=== PATIENT | female | born 1980 | race Caucasian/White ===

== ENCOUNTER 2023-03-12 11:42 | Emergency (ER) | payer MEDICAID, SELFPAY ==
[2023-03-12 11:42] VITALS: BP 141/90; PULSE 74; RESP 18; TEMP 36.1; O2SAT 96
[2023-03-12 11:54] VITALS: BP 141/90; PULSE 74; RESP 18; TEMP 36.1; O2SAT 96
--- NOTE | 2023-03-12 12:14 | ED.DENTAL ---
HPI - Dental/Oral General Chief complaint: Dental/Oral Stated complaint: dental pain and abscess Time Seen by Provider: 03/12/23 11:50 Source: patient and family Mode of arrival: ambulatory Limitations: no limitations History of Present Illness HPI Narrative: patient is a 42-year-old female with dental complaints of the right lower mandible. MD Complaint: tooth pain Onset (ago): day(s) Duration: constant Severity: moderate Severity scale (1-10): 6 Relieving factors: nothing Exacerbating factors: chewing, cold, heat and drinking fluids Context: history of dental caries and poor dental care Associated symptoms: gum swelling Treatment prior to arrival: oral analgesic Related Data Allergies Allergy/AdvReac Type Severity Reaction Status Date / Time No Known Allergies Allergy Verified 03/12/23 11:54 Review of Systems Review of Systems: All systems reviewed & are unremarkable except as noted in HPI and below Constitutional: Constitutional: Reports no additional constitutional complaints Eyes: Eyes: Reports no additional eye complaints ENT: Reports system reviewed and no additional complaints, except as documented Cardiovascular: Cardiovascular: Reports no additional cardiovascular complaints Respiratory: Respiratory: Reports no additional respiratory complaints Gastrointestinal: Gastrointestinal: Reports no additional gastrointestinal complaints Genitourinary: Genitourinary: Reports no additional female genitourinary complaints Musculoskeletal: Musculoskeletal: Reports no additional musculoskeletal complaints Integumentary/Breasts: Skin/Breast: Reports system reviewed and no additional complaints, except as docu Neurologic: Reports system reviewed and no additional complaints, except as documented Psychiatric: Psychiatric: Reports no additional psychiatric complaints Endocrine: Endocrine: Reports no additional endocrine complaints Hematologic/Lymphatic: Hematologic/Lymphatic: Reports no additional hematologic/lymphatic complaints Allergic/Immunologic: Allergic/Immunologic: Reports no additional allergic/immunologic complaints Exam Const: General: healthy appearing and no acute distress Nutritional Appearance: well nourished Orientation/consciousness: patient oriented x3 HENMT: Head: normal to inspection Ears: external ears normal Face/Nose/Sinus: Normal external nose present Teeth and gingiva: abnormal tooth and associated gingiva ( Generalized poor dentition with dental caries and dental fractures) Other: no dental abscesses Eyes: Conjunctivae: conjunctivae normal Pupils: Equal, round and reactive pupils present EOM: EOMs intact bilaterally Resp: Effort & Inspection: normal respiratory effort Auscultation: clear to auscultation bilaterally Cardio: Rate: regular rate Rhythm: regular rhythm Heart sounds: no murmurs GI: Inspection: non-distended Auscultation: normal bowel sounds Skin: General skin exam: normal color Rashes: no rashes Wounds: no wounds Neuro: General: patient oriented x3, moves all extremities and no meningeal signs Extrem: General: normal to inspection, no clubbing, cyanosis or edema and no pedal edema Psych: Mental Status: mental status grossly normal Affect: normal affect Attitude: cooperative Course Vital Signs Vital signs: Vital Signs Temperature 36.1 C L 03/12/23 11:42 Pulse Rate 74 03/12/23 11:42 Respiratory Rate 18 03/12/23 11:42 Blood Pressure 141/90 H 03/12/23 11:42 Pulse Oximetry 96 03/12/23 11:42 Oxygen Delivery Room Air 03/12/23 11:42 Temperature 36.1 C L 03/12/23 11:54 Pulse Rate 74 03/12/23 11:54 Respiratory Rate 18 03/12/23 11:54 Blood Pressure 141/90 H 03/12/23 11:54 Pulse Oximetry 96 03/12/23 11:54 Oxygen Delivery Room Air 03/12/23 11:54 Discharge Plan Discharge Clinical Impression: Mandible pain Patient Disposition: Home, Self-Care Condition: Stable Instructions: Antibiotic Form
[2023-03-12] MEDS: KETOROLAC (*BKC) 60 MG/2 ML VIAL IM (12:21)
[2023-03-12 12:24] VITALS: BP 140/87; PULSE 84; RESP 20; O2SAT 97
== END 2023-03-12 12:32 | disposition home or self-care (01) ==
LOC: CHSED 12:28
PROVIDERS: Emergency Provider Emergency Medicine
DX: R68.84 Jaw pain (principal)
CPT/HCPCS: 96372; 99283; J1885

== ENCOUNTER 2023-05-12 08:05 | Emergency (ER) | payer OTHER, SELFPAY ==
[2023-05-12 08:05] VITALS: BP 129/74; PULSE 71; RESP 16; TEMP 36.7; O2SAT 96
--- NOTE | 2023-05-12 08:20 | ED.DENTAL ---
HPI - Dental/Oral General Chief complaint: Dental/Oral Stated complaint: dental pain Time Seen by Provider: 05/12/23 08:20 Source: patient Mode of arrival: ambulatory Limitations: no limitations History of Present Illness HPI Narrative: 42-year-old female with depression, dental caries presents to the ER with -- right lower jaw pain/dental pain. She has multiple fractured teeth with extensive caries. No fever or chills. No jaw swelling. MD Complaint: tooth pain Onset (ago): day(s) Duration: constant Severity: moderate Relieving factors: nothing Exacerbating factors: cold and heat Context: history of dental caries Treatment prior to arrival: none Related Data Allergies Allergy/AdvReac Type Severity Reaction Status Date / Time No Known Allergies Allergy Verified 03/12/23 11:54 Review of Systems Review of Systems: All systems reviewed & are unremarkable except as noted in HPI and below Constitutional: Constitutional: Reports as per HPI and Reports no additional constitutional complaints Eyes: Eyes: Reports as per HPI and Reports no additional eye complaints ENT: Reports system reviewed and no additional complaints, except as documented and Reports as per HPI Cardiovascular: Cardiovascular: Reports as per HPI and Reports no additional cardiovascular complaints Respiratory: Respiratory: Reports as per HPI and Reports no additional respiratory complaints Gastrointestinal: Gastrointestinal: Reports as per HPI and Reports no additional gastrointestinal complaints Genitourinary: Genitourinary: Reports no additional female genitourinary complaints and Reports as per HPI Musculoskeletal: Musculoskeletal: Reports no additional musculoskeletal complaints and Reports as per HPI Integumentary/Breasts: Skin/Breast: Reports system reviewed and no additional complaints, except as docu and Reports as per HPI Neurologic: Reports system reviewed and no additional complaints, except as documented and Reports as per HPI Psychiatric: Psychiatric: Reports no additional psychiatric complaints and Reports as per HPI Endocrine: Endocrine: Reports no additional endocrine complaints and Reports as per HPI Hematologic/Lymphatic: Hematologic/Lymphatic: Reports no additional hematologic/lymphatic complaints and Reports as per HPI Allergic/Immunologic: Allergic/Immunologic: Reports no additional allergic/immunologic complaints and Reports as per HPI PMFSH Past Medical History Medical History Dental caries Exam Const: General: no acute distress Nutritional Appearance: well nourished Orientation/consciousness: patient oriented x3 Limitations: no limitations HENMT: Head: normal to inspection Ears: external ears normal Face/Nose/Sinus: Normal external nose present Face and sinus: normal facial exam Mouth: Yes Normal oral and palatal mucosa present Teeth and gingiva: abnormal tooth and associated gingiva ( extensive dental caries with multiple missing crowns) Throat: posterior oropharynx normal Eyes: Conjunctivae: conjunctivae normal Pupils: Equal, round and reactive pupils present EOM: EOMs intact bilaterally Direct Ophthalmoscopy: no photophobia Neck: Neck: normal visual inspection, no lymphadenopathy and no meningeal signs Chest: Chest palpation & inspection: normal inspection of the chest Resp: Effort & Inspection: normal respiratory effort Auscultation: clear to auscultation bilaterally Cardio: Rate: regular rate Rhythm: regular rhythm GI: GI Palp: Yes Soft to palpation Auscultation: normal bowel sounds Rectal Exam: normal sphincter tone : General: Yes no CVA tenderness Back/Spine/Pelvis: Back: no CVA tenderness Skin: General skin exam: normal color Rashes: no rashes Wounds: no wounds Neuro: General: patient oriented x3, moves all extremities, no meningeal signs, no focal motor deficits and CN's II-XI intact bilaterally Cranial nerves: Yes Nystagmus
[2023-05-12] MEDS: HYDROcodone/acetaminophen (*CRX) 5-325 MG TABLET 1 TAB PO (08:36)
== END 2023-05-12 08:50 | disposition home or self-care (01) ==
LOC: CHSED 08:36
PROVIDERS: Emergency Provider Internal Medicine Critical Care Medicine; PCP Physician Assistant
DX: K02.9 Dental caries, unspecified (principal)
CPT/HCPCS: 99283; A9270

== ENCOUNTER 2023-09-17 03:22 | Emergency (ER) | payer OTHER, SELFPAY ==
[2023-09-17 03:22] VITALS: BP 137/78; PULSE 68; RESP 18; TEMP 36.6; O2SAT 100
--- NOTE | 2023-09-17 03:31 | ED_ITS ---
HPI - Dental/Oral General Chief complaint: Dental/Oral Stated complaint: dental pain Time Seen by Provider: 09/17/23 03:27 Source: patient Mode of arrival: ambulatory Limitations: no limitations History of Present Illness HPI Narrative: this is a 43-year-old female that presents with dental pain with a cracked too th and severe dental decay with surrounding gum inflammation there is no fever chills no shortness of breath no nausea vomiting. MD Complaint: tooth pain and tooth injury Teeth map: 1. severe tooth decay and cracked tooth with surrounding gum inflammation Onset (ago): month(s) Duration: constant Severity: moderate Severity scale (1-10): 6 Related Data Home Medications Medication Instructions Recorded Confirmed sertraline 100 mg tablet 200 mg PO DAILY 09/17/23 09/17/23 Allergies Allergy/AdvReac Type Severity Reaction Status Date / Time No Known Allergies Allergy Verified 09/17/23 03:28 Review of Systems Review of Systems: All systems reviewed & are unremarkable except as noted in HPI and below PMFSH Past Medical History Medical History Dental caries Exam Const: General: no acute distress Nutritional Appearance: well nourished Orientation/consciousness: patient oriented x3 Limitations: no limitations HENMT: Head: normal to inspection Other: Severe tooth decay and surrounding gum inflammation Neck: Neck: normal visual inspection and no lymphadenopathy Chest: Chest palpation & inspection: normal inspection of the chest Resp: Effort & Inspection: normal respiratory effort Auscultation: clear to auscultation bilaterally Cardio: Rate: regular rate Rhythm: regular rhythm GI: GI Palp: Yes Soft to palpation Skin: General skin exam: normal color Course Course Emergency Course: patient received a dose of Toradol 10mg p.o. and amoxicillin 500mg. Critical Care Time Critical Care Time Critical Care Time: No Discharge Plan Discharge Clinical Impression: Dental caries, Toothache, Dental abscess, Fracture of tooth Patient Disposition: Home, Self-Care Condition: Stable Instructions: Antibiotic Form, Dental Abscess (ED), Toothache (ED) Additional Instructions: Take medication as prescribed and follow with dentist for further evaluation treatment. Prescriptions: New amoxicillin 500 mg tablet 500 mg PO TID Qty: 30 0RF tramadol 50 mg tablet 50 mg PO Q6H PRN (Reason: pain) Qty: 14 0RF No Action sertraline 100 mg tablet 200 mg PO DAILY Follow-up/Referrals: Rachna,BART Deluna [Primary Care Provider] - Stand Alone Forms: Work/School Release IP Time of Disposition: 03:37
[2023-09-17] MEDS: AMOXICILLIN 500 MG CAPSULE PO (03:38)
[2023-09-17] MEDS: KETOROLAC 10 MG TABLET PO (03:39)
== END 2023-09-17 03:45 | disposition home or self-care (01) ==
LOC: CHSED 03:41
PROVIDERS: Emergency Provider Emergency Medicine; PCP Physician Assistant
DX: K02.9 Dental caries, unspecified (principal); K04.7 Periapical abscess without sinus; S02.5XXA Fracture of tooth (traumatic), initial encounter for closed fracture; Z79.899 Other long term (current) drug therapy; X58.XXXA Exposure to other specified factors, initial encounter
CPT/HCPCS: 99283; A9270

== ENCOUNTER 2023-11-28 21:39 | Emergency (ER) | payer OTHER, SELFPAY ==
--- NOTE | ~2023-11-28 | CT_ITS ---
Clinical Indication: Chest pain CT Scan of the Chest with Contrast: Technique: Contiguous sections were acquired throughout the chest after intravenous administration of 100 cc of Omnipaque 350. Dose reduction technique was used on this scan by utilizing automated expos ure control and iterative reconstruction technique. The dose-length product (DLP) was 351.60 mGy-cm. Findings: There is no evidence of any significant mediastinal, hilar or axillary lymphadenopathy. There is no f illing defect in the pulmonary arterial tree to suggest pulmonary embolus. There is no evidence of ao rtic dissection or aneurysm. There is no evidence of pleural or pericardial effusion. The lungs are clear. No pulmonary nodules or infiltrates are noted. Images through the upper abdomen reveal no abnormalities. Impression: No evidence of pulmonary embolus, aortic dissection, or aortic aneurysm. Clear lungs. Reviewed, dictated and finalized at [facility]. Impression: No evidence of pulmonary embolus, aortic dissection, or aortic aneurysm. Clear lungs.
--- NOTE | ~2023-11-28 | XR_ITS ---
Clinical Indication: Chest pain PA and lateral views of the chest: Comparison: None Findings: The lungs are clear, without evidence of focal consolidation or pleural effusion. Cardiome diastinal silhouette is within normal limits. Bones and soft tissues are unremarkable. Impression: Normal chest. Reviewed, dictated and finalized at location . Impression: Normal chest.
[2023-11-28 21:42] VITALS: BP 157/87; PULSE 72; RESP 18; TEMP 36.6; O2SAT 97
--- NOTE | 2023-11-28 21:54 | ECG_ITS ---
SEE SCANNED COPY FOR CONFIRMED REPORT MTDD
--- NOTE | 2023-11-28 22:07 | ED.GENADULT ---
HPI - General Adult General Chief complaint: Unspecified Stated complaint: abdominal pain Time Seen by Provider: 11/28/23 21:45 Source: patient Mode of arrival: ambulatory Limitations: no limitations History of Present Illness [facility] narrative: patient is a 43-year-old female with a significant past medical history that presents today with left-sided chest pain. Patient has had this for the last week now. She states that is worse than last few days. He says the pain feels like a stabbing pain in her left side of her chest. She has a new little bit shortness of breath sometimes when she does look bad pain. She denies any injury to the area. She does not remember bumping into things are bad. MD complaint: Chest pain, rib pain Onset (ago): day(s) Location: chest Radiation: flank Severity: moderate Severity scale (1-10): 4 Quality: stabbing and aching Pain Consistency: intermittent Relieving factors: none Exacerbating factors: none Associated symptoms: chest pain Treatments prior to arrival: none Related Data Home Medications Medication Instructions Recorded Confirmed sertraline 100 mg tablet 200 mg PO DAILY 09/17/23 11/28/23 bupropion HCl 150 mg 24 hr tablet, 150 mg PO DAILY 11/28/23 11/28/23 extended release Allergies Allergy/AdvReac Type Severity Reaction Status Date / Time No Known Allergies Allergy Verified 11/28/23 22:13 Review of Systems Review of Systems: All systems reviewed & are unremarkable except as noted in HPI and below Constitutional: Constitutional: Reports as per HPI Eyes: Eyes: Reports no additional eye complaints ENT: Reports system reviewed and no additional complaints, except as documented Cardiovascular: Cardiovascular: Reports chest pain Respiratory: Respiratory: Reports no additional respiratory complaints Gastrointestinal: Gastrointestinal: Reports no additional gastrointestinal complaints Genitourinary: Genitourinary: Reports no additional female genitourinary complaints Musculoskeletal: Musculoskeletal: Reports as per HPI Integumentary/Breasts: Skin/Breast: Reports system reviewed and no additional complaints, except as docu Neurologic: Reports system reviewed and no additional complaints, except as documented Psychiatric: Psychiatric: Reports no additional psychiatric complaints Endocrine: Endocrine: Reports no additional endocrine complaints Hematologic/Lymphatic: Hematologic/Lymphatic: Reports no additional hematologic/lymphatic complaints Allergic/Immunologic: Allergic/Immunologic: Reports no additional allergic/immunologic complaints [facility] Past Medical History Medical History Dental caries Exam Const: General: cooperative, healthy appearing and comfortable Nutritional Appearance: average body habitus Orientation/consciousness: oriented to person Limitations: no limitations HENMT: Head: normal to inspection Ears: hearing grossly normal bilaterally Face/Nose/Sinus: Normal external nose present Eyes: General: appearance normal, both eyes and all related structures Neck: Neck: normal visual inspection Chest: Chest palpation & inspection: localized rib tenderness with anteroposterior compression Resp: Effort & Inspection: normal respiratory effort and able to speak in complete sentences Auscultation: clear to auscultation bilaterally Cardio: Jugular venous distension: no JVD Palpation: normal PMI Rate: regular rate Rhythm: regular rhythm Heart sounds: S1 normal heart sound present and S2 normal heart sound present GI: Inspection: normal to inspection Back/Spine/Pelvis: Back: no CVA tenderness Skin: General skin exam: normal color and no rashes or lesions noted Lesions: no lesions Rashes: no rashes Trauma: no lacerations or abrasions Neuro: General: oriented to person and oriented to place Cranial nerves: Yes CN's II-XII intact bilaterally Cognition (Neuro): normal cognition Speech:
[2023-11-28] MEDS: KETOROLAC (*BKC) 60 MG/2 ML VIAL IM (22:20)
[2023-11-28 22:58] LABS: Basophils Absolute Auto 0.03 K/mm3 (0.00-0.10); Basophils Percent Auto 0.3 % (0.0-1.0); Eosinophils Absolute Auto 0.19 K/mm3 (0.02-0.50); Eosinophils Percent Auto 2.2 % (1.0-6.0); Hematocrit 41.5 % (35.0-49.0); Immature Granulocyte Absolute 0.02 K/mm3 (0.00-0.00); Immature Granulocyte Percent A 0.2 % (0.0-0.0); Lymphocytes Absolute Auto 2.27 K/mm3 (1.10-4.50); Lymphocytes Percent Auto 25.9 % (18.0-42.0); Mean Corpuscular HGB Conc 33.7 g/dL (32-36); Mean Corpuscular Hemoglobin 31.7 pg (27.0-31.0); Mean Corpuscular Volume 94.1 fL (78.0-102.0); Mean Platelet Volume 12.7 fl (9.2-11.8); Monocytes Percent Auto 4.6 % (2.0-11.0); Neutrophils Absolute Auto 5.86 K/mm3 (1.70-7.20); Neutrophils Percent Auto 66.8 % (50.0-70.0); Platelet Count Result 154 K/mm3 (150-420); Red Blood Count 4.41 M/mm3 (4.20-5.40); Red Cell Distribution Width 12.8 % (11.6-14.4); White Blood Count 8.8 K/mm3 (4.8-10.8)
[2023-11-28 23:13] LABS: Alanine Aminotransferase 23 U/L (14-59); Alkaline Phosphatase 97 U/L (46-116); Anion Gap 11 mmol/L (4-12); Aspartate Amino Transferase 13 U/L (15-37); Bilirubin,Total 0.4 mg/dL (0.00-1.00); Blood Urea Nitrogen 14 mg/dL (7-18); Calcium 8.5 mg/dL (8.5-10.1); Carbon Dioxide 26 mmol/L (21-32); Chloride 103 mmol/L (98-108); Estimated CRCL calculation 79 ml/min; Estimated Glomerular Filt Rate > 60; Glucose 102 mg/dL (70-99); Osmolality Calculated 290 mOsm/kg (285-295); Potassium 3.6 mmol/L (3.5-5.1); Sodium 140 mmol/L (136-145); Total Protein 6.4 g/dL (6.4-8.2)
[2023-11-29 00:55] VITALS: BP 136/75; PULSE 87; RESP 20; TEMP 37.2; O2SAT 98
== END 2023-11-29 00:56 | disposition home or self-care (01) ==
PROVIDERS: Emergency Provider Family Medicine; PCP Physician Assistant
DX: M94.0 Chondrocostal junction syndrome [Tietze] (principal); R07.81 Pleurodynia
CPT/HCPCS: 36415; 71046; 71275; 80053; 85025; 85380; 93005; 96372; 99284; J1885; Q9967

== ENCOUNTER 2024-03-17 15:51 | Emergency (ER) | payer OTHER, SELFPAY ==
[2024-03-17 15:51] VITALS: BP 136/71; PULSE 62; RESP 18; TEMP 36.4; O2SAT 96
--- NOTE | 2024-03-17 16:15 | PC.NURSE ---
covid test sent to lab
--- NOTE | 2024-03-17 16:24 | ED.URI ---
HPI - URI/Sore Throat General Chief Complaint: Upper Respiratory Infection Stated Complaint: sore throat Source: patient Mode of arrival: ambulatory Limitations: no limitations History of Present Illness HPI Narrative: Patient is a 43-year-old female with sore throat and cough and congestion. MD elicited complaint: cough, sore throat and nasal congestion Onset (ago): day(s) (2) Consistency: constant Severity: mild Pain scale (0-10): 2 Description of mucous: clear and watery Able to tolerate fluids by mouth: Yes Exacerbating factors: nothing Relieving factors: nothing Context: sick contacts ( There is another member in the house with COVID) Associated symptoms: myalgias, nasal congestion and sore throat Treatments prior to arrival: none Related Data Home Medications Medication Instructions Recorded Confirmed sertraline 100 mg tablet 200 mg PO DAILY 09/17/23 03/17/24 Allergies Allergy/AdvReac Type Severity Reaction Status Date / Time No Known Allergies Allergy Verified 03/17/24 15:59 Review of Systems Review of Systems: All systems reviewed & are unremarkable except as noted in HPI and below Constitutional: Constitutional: Reports no additional constitutional complaints Eyes: Eyes: Reports no additional eye complaints ENT: Reports system reviewed and no additional complaints, except as documented Cardiovascular: Cardiovascular: Reports no additional cardiovascular complaints Respiratory: Respiratory: Reports no additional respiratory complaints Gastrointestinal: Gastrointestinal: Reports no additional gastrointestinal complaints Genitourinary: Genitourinary: Reports no additional female genitourinary complaints Musculoskeletal: Musculoskeletal: Reports no additional musculoskeletal complaints Integumentary/Breasts: Skin/Breast: Reports system reviewed and no additional complaints, except as docu Neurologic: Reports system reviewed and no additional complaints, except as documented Psychiatric: Psychiatric: Reports no additional psychiatric complaints Endocrine: Endocrine: Reports no additional endocrine complaints Hematologic/Lymphatic: Hematologic/Lymphatic: Reports no additional hematologic/lymphatic complaints Allergic/Immunologic: Allergic/Immunologic: Reports no additional allergic/immunologic complaints PMFSH Past Medical History Medical History Dental caries Exam Const: General: healthy appearing Nutritional Appearance: well nourished Orientation/consciousness: patient oriented x3 HENMT: Head: normal to inspection Ears: external ears normal Face/Nose/Sinus: Normal external nose present Eyes: Conjunctivae: conjunctivae normal Pupils: Equal, round and reactive pupils present EOM: EOMs intact bilaterally Neck: Neck: normal visual inspection Chest: Chest palpation & inspection: normal inspection of the chest Resp: Effort & Inspection: normal respiratory effort and not labored Auscultation: clear to auscultation bilaterally and no crackles Cardio: Rate: regular rate Rhythm: regular rhythm Heart sounds: no murmurs GI: Inspection: non-distended GI Palp: Yes Soft to palpation and No Tenderness to palpation present (GI) Auscultation: normal bowel sounds : General: Yes bladder normal to palpation Back/Spine/Pelvis: Back: no CVA tenderness Skin: General skin exam: normal color Rashes: no rashes Wounds: no wounds Neuro: General: patient oriented x3, moves all extremities and no meningeal signs Cranial nerves: Yes Nystagmus not present Speech: normal speech Gait exam (Neuro): Normal gait present Extrem: General: normal to inspection Psych: Mental Status: mental status grossly normal Affect: normal affect Attitude: cooperative Course Vital Signs Vital signs: Vital Signs Temperature 36.4 C 03/17/24 15:51 Pulse Rate 62 03/17/24 15:51 Respiratory Rate 18 03/17/24 15:51 Blood Pressure 136/71
[2024-03-17 16:44] LABS: Strep Group A RT-PCR NOT DETECTED (Negative)
[2024-03-17 16:51] LABS: Influenza A QL RT-PCR Negative (Negative); Influenza B QL RT-PCR Negative (Negative); RSV RNA, RT-PCR Negative (Negative); SARS-CoV-2 RNA PCR Positive (Negative)
--- NOTE | 2024-03-17 16:58 | PC.NURSE ---
Pt resting comfortably. Family in room. No complaints.
[2024-03-17 17:03] VITALS: BP 140/72; PULSE 65; RESP 17; TEMP 36.7; O2SAT 98
== END 2024-03-17 17:14 | disposition home or self-care (01) ==
PROVIDERS: Emergency Provider Emergency Medicine; PCP Physician Assistant
DX: U07.1 COVID-19 (principal); Z20.822 Contact with and (suspected) exposure to COVID-19; Z79.899 Other long term (current) drug therapy
CPT/HCPCS: 87637; 87651; 99283

== ENCOUNTER 2024-03-27 15:31 | Emergency (ER) | payer OTHER, SELFPAY ==
[2024-03-27 15:32] VITALS: BP 143/84; PULSE 62; RESP 20; TEMP 36.5; O2SAT 98
--- NOTE | 2024-03-27 15:46 | ED.GENADULT ---
HPI - General Adult General Chief complaint: Dental/Oral Stated complaint: right ear, dental Time Seen by Provider: 03/27/24 15:33 History of Present Illness HPI narrative: Lida is a 43F with a PMH of poor dentition that presented to the ED with dental pain in her right lower molars that radiates to the right ear. It has been worsening for a few days. No dyspnea, dysphagia, fevers, N/V or fever. Related Data Home Medications Medication Instructions Recorded Confirmed sertraline 100 mg tablet 200 mg PO DAILY 09/17/23 03/27/24 Allergies Allergy/AdvReac Type Severity Reaction Status Date / Time No Known Allergies Allergy Verified 03/27/24 15:34 Review of Systems Review of Systems: All systems reviewed & are unremarkable except as noted in HPI and below PMFSH Past Medical History Medical History Dental caries Exam Const: General: cooperative, healthy appearing, comfortable, no acute distress, well developed, alert, awake and Physically active Orientation/consciousness: oriented to person, oriented to place and oriented to time HENMT: Head: normal to inspection, normocephalic and atraumatic Ears: hearing grossly normal bilaterally and external ears normal Face/Nose/Sinus: Normal external nose present Other: Poor dentition. Right lower molar was cracked, black and had erythema at the base Right TM wnl as well as external ear canal. Eyes: General: appearance normal, both eyes and all related structures Periorbital: periorbital findings normal Sclera: sclerae normal Pupils: Equal, round and reactive pupils present Neck: Neck: normal visual inspection Chest: Chest palpation & inspection: normal inspection of the chest Resp: Effort & Inspection: normal respiratory effort, able to speak in complete sentences and no respiratory distress Cardio: Jugular venous distension: no JVD Skin: General skin exam: normal color and no rashes or lesions noted Neuro: General: oriented to person, oriented to place and oriented to time Cranial nerves: Yes Equal, round and reactive pupils present Extrem: General: normal to inspection Course Course Emergency Course: Given a dose of Augmentin in the ED Vital Signs Vital signs: Vital Signs Temperature 97.7 F 03/27/24 15:32 Pulse Rate 62 03/27/24 15:32 Respiratory Rate 20 03/27/24 15:32 Blood Pressure 143/84 H 03/27/24 15:32 Pulse Oximetry 98 03/27/24 15:32 Oxygen Delivery Room Air 03/27/24 15:32 Temperature 97.7 F 03/27/24 15:32 Pulse Rate 62 03/27/24 15:32 Respiratory Rate 20 03/27/24 15:32 Blood Pressure 143/84 H 03/27/24 15:32 Pulse Oximetry 98 03/27/24 15:32 Oxygen Delivery Room Air 03/27/24 15:32 Medical Decision Making Vital Signs Vital Signs: Vital Signs Temperature 97.7 F 03/27/24 15:32 Pulse Rate 62 03/27/24 15:32 Respiratory Rate 20 03/27/24 15:32 Blood Pressure 143/84 H 03/27/24 15:32 Pulse Oximetry 98 03/27/24 15:32 Oxygen Delivery Room Air 03/27/24 15:32 Temperature 97.7 F 03/27/24 15:32 Pulse Rate 62 03/27/24 15:32 Respiratory Rate 20 03/27/24 15:32 Blood Pressure 143/84 H 03/27/24 15:32 Pulse Oximetry 98 03/27/24 15:32 Oxygen Delivery Room Air 03/27/24 15:32 Discharge Plan Discharge Clinical Impression: Dental abscess Patient Disposition: Home, Self-Care Condition: Stable Instructions: Dental Abscess (ED) Prescriptions: New amoxicillin-pot clavulanate 875-125 mg tablet 1 tablet PO BID Qty: 10 0RF No Action sertraline 100 mg tablet 200 mg PO DAILY Follow-up/Referrals: Rachna,BART Deluna [Primary Care Provider] - Stand Alone Forms: Work/School Release IP
[2024-03-27] MEDS: AMOXICILLIN/CLAVULANATE K 875-125 MG TAB 1 TABLET PO (15:48)
[2024-03-27 16:08] VITALS: BP 143/84; PULSE 62; RESP 20; TEMP 36.5; O2SAT 98
== END 2024-03-27 16:08 | disposition home or self-care (01) ==
PROVIDERS: Emergency Provider Family Medicine; PCP Physician Assistant
DX: K04.7 Periapical abscess without sinus (principal)
CPT/HCPCS: 99283; A9270